=== PATIENT | female | born 1990 | race American Indian/Alaskan Native ===

== ENCOUNTER 2019-04-26 15:06 | Emergency (ER) | payer SELFPAY ==
--- NOTE | 2019-04-26 15:17 | Emergency Department Report ---
Blank Doc - Documentation Documentation: This is a 28-year-old female that presents with SI. Stated has a plan to hang self and cut wrist. This initial assessment/diagnostic orders/clinical plan/treatment(s) is/are subject to change based on patient's health status, clinical progression and re- assessment by fellow clinical providers in the ED. Further treatment and workup at subsequent clinical providers discretion. Patient/guardians urged not to elope from the ED as their condition may be serious if not clinically assessed and managed. Initial orders include: 1- Patient sent to MAIN ED for further evaluation and treatment 2- cross tie tram loader was notified to have patient be brought back [facility]. 3- RN was notified to keep patient as close range and observation until room available 4- Patient presents with substantial risk of imminent harm to self, appears to be so unable to care for his/her own physical health and safety as to create an imminently life-endangering crisis, and has committed/expressed life endangering crisis to self. Due to this and other complaints, patient is put on 1013.
[2019-04-26 15:43] LABS: Basophils % (Auto) 0.6 % (0.0-1.8); Eosinophils # (Auto) 0.1 K/mm3 (0.0-0.4); Eosinophils % (Auto) 1.2 % (0.0-4.3); Hematocrit 39.7 % (30.3-42.9); Lymphocytes % (Auto) 34.2 % (13.4-35.0); Mean Corpuscular HGB Conc 33 % (30-34); Mean Corpuscular Hemoglobin 30 pg (28-32); Mean Corpuscular Volume 93 fl (79-97); Monocytes # (Auto) 0.5 K/mm3 (0.0-0.8); Monocytes % (Auto) 9.3 % (0.0-7.3); Platelet Count 236 K/mm3 (140-440); Red Blood Count 4.28 M/mm3 (3.65-5.03); Red Cell Distribution Width 14.6 % (13.2-15.2)
[2019-04-26 16:14] LABS: BUN/Creatinine Ratio 3; Blood Urea Nitrogen 3 mg/dL (7-17); Calcium 9.1 mg/dL (8.4-10.2); Hemolysis Index 8
[2019-04-26 16:23] LABS: Bacteria,Urine 2+ /HPF (Negative); Bilirubin,Urine NEG (Negative); Blood,Urine SM (Negative); Color,Urine Yellow (Yellow); Mucus,Urine FEW /HPF; Protein,Urine <15 mg/dL mg/dL (Negative); Urobilinogen,Urine < 2.0 mg/dL (<2.0)
[2019-04-26 16:29] LABS: WBC,Urine > 182.0 /HPF (0.0-6.0)
[2019-04-26 16:45] LABS: Amphetamine Screen,Urine PRESUMPTIVE NEGATIVE; Benzodiazepines Screen,Urine PRESUMPTIVE NEGATIVE; Methadone Screen,Urine PRESUMPTIVE NEGATIVE; Opiate Screen,Urine PRESUMPTIVE NEGATIVE
[2019-04-26 17:18] LABS: Cannabinoid Screen,Urine PRESUMPTIVE POSITIVE; Cocaine Screen,Urine PRESUMPTIVE POSITIVE
[2019-04-26] MEDS ORDERED: MACROBID PO ONE (23:03)
--- NOTE | 2019-04-27 01:08 | Emergency Department Report ---
ED Psych HPI - General Chief Complaint: Psych Stated Complaint: MH EVAL Time Seen by Provider: 04/26/19 15:15 Source: patient Mode of arrival: Ambulatory - History of Present Illness Initial Comments: Patient is a 28-year-old Haitian female who is presenting with depression and suicidal thoughts. Patient states that she is felt this way for some time. Patient denies any homicidal ideations. Patient states she also has some auditory hallucinations but will not state what her voices are saying to her. Patient has not attempted suicide at this time. Patient states she does have a history of self medicated with cocaine and alcohol. - Related Data Home Medications Medication Instructions Recorded Confirmed Last Taken Divalproex ER [Depakote ER] 2 tab PO DAILY 04/26/19 04/26/19 Unknown OLANZapine [Zyprexa] 1 tab PO HS 04/26/19 04/26/19 Unknown QUEtiapine [SEROquel] 200 mg PO BID 04/26/19 04/26/19 Unknown Allergies Allergy/AdvReac Type Severity Reaction Status Date / Time Penicillins Allergy Hives Verified 08/19/17 13:28 ED Review of Systems ROS: Stated complaint: MH EVAL Other details as noted in HPI Comment: All other systems reviewed and negative ED Past Medical Hx - Past Medical History Previous Medical History?: Yes Hx Psychiatric Treatment: Yes (Schizophrenia, Bi Polar, depression, anxiety, PTSD) - Surgical History Past Surgical History?: Yes Additional Surgical History: Hernia repair age 12 - Social History Smoking Status: Unknown if ever smoked Substance Use Type: None - Medications Home Medications: Home Medications Medication Instructions Recorded Confirmed Last Taken Type Divalproex ER [Depakote ER] 2 tab PO DAILY 04/26/19 04/26/19 Unknown History OLANZapine [Zyprexa] 1 tab PO HS 04/26/19 04/26/19 Unknown History QUEtiapine [SEROquel] 200 mg PO BID 04/26/19 04/26/19 Unknown History ED Physical Exam - General Limitations: No Limitations General appearance: alert, in no apparent distress - Head Head exam: Present: atraumatic, normocephalic - Eye Eye exam: Present: normal appearance - ENT ENT exam: Present: mucous membranes moist - Neck Neck exam: Present: normal inspection - Respiratory Respiratory exam: Present: normal lung sounds bilaterally. Absent: respiratory distress, wheezes, rales, rhonchi - Cardiovascular Cardiovascular Exam: Present: regular rate, normal rhythm. Absent: systolic murmur, diastolic murmur, rubs, gallop - GI/Abdominal GI/Abdominal exam: Present: soft, normal bowel sounds. Absent: distended, tenderness, guarding, rebound - Extremities Exam Extremities exam: Present: normal inspection - Back Exam Back exam: Present: normal inspection - Neurological Exam Neurological exam: Present: alert, oriented X3 - Psychiatric Psychiatric exam: Present: normal affect, normal mood - Skin Skin exam: Present: warm, dry, intact, normal color. Absent: rash ED Course Vital Signs 04/26/19 04/26/19 15:18 19:27 Temperature 98.5 F 97.7 F Pulse Rate 73 71 Respiratory 18 16 Rate Blood Pressure 134/80 Blood Pressure 102/64 [Left] O2 Sat by Pulse 99 99 Oximetry ED Medical Decision Making - Lab Data Result diagrams: 04/26/19 15:31 04/26/19 15:31 Lab Results 04/26/19 04/26/19 04/26/19 Range/Units 15:17 15:31 15:31 WBC 5.8 (4.5-11.0) K/mm3 RBC 4.28 (3.65-5.03) M/mm3 Hgb 13.0 (10.1-14.3) gm/dl Hct 39.7 (30.3-42.9) % MCV 93 (79-97) fl MCH 30 (28-32) pg MCHC 33 (30-34) % RDW 14.6 (13.2-15.2) % Plt Count 236 (140-440) K/mm3 Lymph % (Auto) 34.2 (13.4-35.0) % [place] % (Auto) 9.3 H (0.0-7.3) % Eos % (Auto) 1.2 (0.0-4.3) % Baso % (Auto) 0.6 (0.0-1.8) % Lymph # 2.0 (1.2-5.4) K/mm3 [place] # 0.5 (0.0-0.8) K/mm3 Eos # 0.1 (0.0-0.4) K/mm3 Baso # 0.0 (0.0-0.1) K/mm3 Seg Neutrophils % 54.7 (40.0-70.0) % Seg Neutrophils # 3.2 (1.8-7.7) K/mm3 Sodium 141 (137-145) mmol/L Potassium 3.4 L (3.6-5.0) mmol/L Chloride 103.5 (98-107) mmol/L Carbon Dioxide 27 (22-30) mmol/L Anion Gap 14 mmol/L BUN 3 L (7-17) mg/dL Creatinine 1.1 (0.7-1.2) mg/dL Estimated GFR > 60 ml/min BUN/Creatinine Ratio 3 % Glucose 62 L (65-100) mg/dL Calcium 9.1 (8.4-10.2) mg/dL HCG, Qual (Negative) Urine Color (Yellow) Urine Turbidity (Clear) Urine pH (5.0-7.0) Ur Specific [place] (1.003-1.030) Urine Protein (Negative) mg/dL Urine Glucose (UA) (Negative) mg/dL Urine Ketones (Negative) mg/dL Urine Blood (Negative) Urine Nitrite (Negative) Urine Bilirubin (Negative) Urine Urobilinogen (<2.0) mg/dL Ur Leukocyte Esterase (Negative) Urine WBC (Auto) (0.0-6.0) /HPF Urine RBC (Auto) (0.0-6.0) /HPF U Epithel Cells (Auto) (0-13.0) /HPF Urine Bacteria (Auto) (Negative) /HPF Urine WBC Clumps /HPF Ur Transition Epith Cell /HPF Urine Mucus /HPF Salicylates (2.8-20.0) mg/dL Urine Opiates Screen Presumptive negative Urine Methadone Screen Presumptive negative Acetaminophen (10.0-30.0) ug/mL Ur Barbiturates Screen Presumptive negative Ur Phencyclidine Scrn Presumptive negative Ur Amphetamines Screen Presumptive negative U Benzodiazepines Scrn Presumptive negative Urine Cocaine Screen Presumptive positive U Marijuana (THC) Screen Presumptive positive Drugs of Abuse Note Disclamer Plasma/Serum Alcohol (0-0.07) % 04/26/19 04/26/19 04/26/19 Range/Units 15:31 15:31 15:31 WBC (4.5-11.0) K/mm3 RBC (3.65-5.03) M/mm3 Hgb (10.1-14.3) gm/dl Hct (30.3-42.9) % MCV (79-97) fl MCH (28-32) pg MCHC (30-34) % RDW (13.2-15.2) % Plt Count (140-440) K/mm3 Lymph % (Auto) (13.4-35.0) % [place] % (Auto) (0.0-7.3) % Eos % (Auto) (0.0-4.3) % Baso % (Auto) (0.0-1.8) % Lymph # (1.2-5.4) K/mm3 [place] # (0.0-0.8) K/mm3 Eos # (0.0-0.4) K/mm3 Baso # (0.0-0.1) K/mm3 Seg Neutrophils % (40.0-70.0) % Seg Neutrophils # (1.8-7.7) K/mm3 Sodium (137-145) mmol/L Potassium (3.6-5.0) mmol/L Chloride (98-107) mmol/L Carbon Dioxide (22-30) mmol/L Anion Gap mmol/L BUN (7-17) mg/dL Creatinine (0.7-1.2) mg/dL Estimated GFR ml/min BUN/Creatinine Ratio % Glucose (65-100) mg/dL Calcium (8.4-10.2) mg/dL HCG, Qual (Negative) Urine Color (Yellow) Urine Turbidity (Clear) Urine pH (5.0-7.0) Ur Specific [place] (1.003-1.030) Urine Protein (Negative) mg/dL Urine Glucose (UA) (Negative) mg/dL Urine Ketones (Negative) mg/dL Urine Blood (Negative) Urine Nitrite (Negative) Urine Bilirubin (Negative) Urine Urobilinogen (<2.0) mg/dL Ur Leukocyte Esterase (Negative) Urine WBC (Auto) (0.0-6.0) /HPF Urine RBC (Auto) (0.0-6.0) /HPF U Epithel Cells (Auto) (0-13.0) /HPF Urine Bacteria (Auto) (Negative) /HPF Urine WBC Clumps /HPF Ur Transition Epith Cell /HPF Urine Mucus /HPF Salicylates < 0.3 L (2.8-20.0) mg/dL Urine Opiates Screen Urine Methadone Screen Acetaminophen < 5.0 L (10.0-30.0) ug/mL Ur Barbiturates Screen Ur Phencyclidine Scrn Ur Amphetamines Screen U Benzodiazepines Scrn Urine Cocaine Screen U Marijuana (THC) Screen Drugs of Abuse Note Plasma/Serum Alcohol < 0.01 (0-0.07) % 04/26/19 04/26/19 Range/Units 15:31 15:54 WBC (4.5-11.0) K/mm3 RBC (3.65-5.03) M/mm3 Hgb (10.1-14.3) gm/dl Hct (30.3-42.9) % MCV (79-97) fl MCH (28-32) pg MCHC (30-34) % RDW (13.2-15.2) % Plt Count (140-440) K/mm3 Lymph % (Auto) (13.4-35.0) % [place] % (Auto) (0.0-7.3) % Eos % (Auto) (0.0-4.3) % Baso % (Auto) (0.0-1.8) % Lymph # (1.2-5.4) K/mm3 [place] # (0.0-0.8) K/mm3 Eos # (0.0-0.4) K/mm3 Baso # (0.0-0.1) K/mm3 Seg Neutrophils % (40.0-70.0) % Seg Neutrophils # (1.8-7.7) K/mm3 Sodium (137-145) mmol/L Potassium (3.6-5.0) mmol/L Chloride (98-107) mmol/L Carbon Dioxide (22-30) mmol/L Anion Gap mmol/L BUN (7-17) mg/dL Creatinine (0.7-1.2) mg/dL Estimated GFR ml/min BUN/Creatinine Ratio % Glucose (65-100) mg/dL Calcium (8.4-10.2) mg/dL HCG, Qual Negative (Negative) Urine Color Yellow (Yellow) Urine Turbidity Cloudy (Clear) Urine pH 6.0 (5.0-7.0) Ur Specific [place] 1.009 (1.003-1.030) Urine Protein <15 mg/dl (Negative) mg/dL Urine Glucose (UA) Neg (Negative) mg/dL Urine Ketones Neg (Negative) mg/dL Urine Blood Sm (Negative) Urine Nitrite Neg (Negative) Urine Bilirubin Neg (Negative) Urine Urobilinogen < 2.0 (<2.0) mg/dL Ur Leukocyte Esterase Lg (Negative) Urine WBC (Auto) > 182.0 H (0.0-6.0) /HPF Urine RBC (Auto) 22.0 (0.0-6.0) /HPF U Epithel Cells (Auto) 3.0 (0-13.0) /HPF Urine Bacteria (Auto) 2+ (Negative) /HPF Urine WBC Clumps 3+ /HPF Ur Transition Epith Cell < 1 /HPF Urine Mucus Few /HPF Salicylates (2.8-20.0) mg/dL Urine Opiates Screen Urine Methadone Screen Acetaminophen (10.0-30.0) ug/mL Ur Barbiturates Screen Ur Phencyclidine Scrn Ur Amphetamines Screen U Benzodiazepines Scrn Urine Cocaine Screen U Marijuana (THC) Screen Drugs of Abuse Note Plasma/Serum Alcohol (0-0.07) % - Medical Decision Making Placed on 1013 and is awaiting psychiatric placement. Patient also has a UTI was started on Macrobid. Critical care attestation.: If time is entered above; I have spent that time in minutes in the direct care of this critically ill patient, excluding procedure time. ED Disposition Clinical Impression: Encounter for psychiatric assessment Disposition: DC/TX-65 PSY HOSP/PSY UNIT Is pt being admited?: No Does the pt Need Aspirin: No Condition: Stable Referrals: ANJU ACOSTA MD [Primary Care Provider] - 3-5 Days Time of Disposition: 01:08
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
[2019-04-27] MEDS: ZOLOFT PO SCH (14:25)
[2019-04-28] MEDS: ZOLOFT PO SCH (10:00)
--- NOTE | 2019-04-28 13:46 | Progress Note ---
Subjective - Reason for Consult Consult date: 04/28/19 Reason for consult: Psychiatric Follow-up Evaluation - Chief Complaint Chief complaint: "Same ol same ol" Patient is a 28 y.o. AA female who presented to the ER for depression and suicidal ideations. Today the patient is cooperative but anxious during the assessment. At times throughout the assessment patient is tearful. She states, " I still feel like I want to hurt myself. I want to slice my wrist." Patient presents depressed and anxious during the assessment. She endorses multiple stressors. She rates her depression 20/10 on scale from 1 to 10, with 10 being the worse. Later, she states " I hear voices telling me I'm worthless and need to end my life." She reports decrease appetite and appropriate sleep. She reports medication compliance. Reported side effects are nausea and decrease a ppetite. Mental Status Exam - Vital signs Last Vital Signs Temp 99.1 F 04/28/19 10:00 Pulse 53 L 04/28/19 10:00 Resp 18 04/28/19 10:00 BP 115/64 04/28/19 10:00 Pulse Ox 99 04/28/19 10:00 - Exam Narrative exam: Mental Status Exam: Appearance: anxious, cooperative Behavior: regular eye contact Speech: regular rate and tone Mood: depressed, anxious, tearful Affect: congruent to mood Thought Process: circumstantial Thought Content: denies HI's and AVH's; +SI's with plan to cut wrist Motor Activity: ambulatory Cognition: A/O x 3 Insight: variable to fair Judgment: poor Assessment and Plan Impression: MDD. PTSD. Substance Use DO (cocaine). Cannabis Use DO. Hx of self injury. Today patient is cooperative but anxious during the assessment. She endorses depressed mood, anxiety, auditory hallucinations, and SI's with plan. DDx: Substance Induced Mood DO, R/O Personality DO Recommendation/Plan: 1. Continue 1013. 2. Discontinue Zoloft 50 mg PO daily for depression/PTSD. Discussed possible suicidality/medication induced fransisca with tatient reference Zoloft, she verbalized understanding. Ordered line of sight for safety, assigned nurse informed. Patient complained of side effects nausea and decrease appetite. 3. Start Abilify 5mg po QHS mood/psychosis. Discussed possible metabolic side effects. Patient verbalizes understanding. Disposition: The patient was referred to inpatient psychiatric services. Will staff with Dr Burt Thomas.
[2019-04-28] MEDS ORDERED: ABILIFY PO SCH (22:00)
[2019-04-29 05:21] LABS: Bilirubin,Urine NEG (Negative); Blood,Urine NEG (Negative); Color,Urine Yellow (Yellow); Protein,Urine <15 mg/dL mg/dL (Negative); Urobilinogen,Urine < 2.0 mg/dL (<2.0)
[2019-04-29] MEDS ORDERED: PHENERGAN PO ONE (10:03)
[2019-04-29] MEDS ORDERED: ZOLOFT PO ONE (13:26)
--- NOTE | 2019-04-29 13:29 | Progress Note ---
Subjective - Reason for Consult Consult date: 04/29/19 Reason for consult: Psychiatry Follow-up - Chief Complaint Chief complaint: "Its hard for me" Patient is a 28 y.o. AA female who presented to the ER for depression and suicidal ideations. Today the patient was calm and cooperative during the assessment. She stated that nothing had changed, she stated, "I have nothing to live for at this time." She denies HI's and AVH's. She denies any side effects of her medication. Mental Status Exam - Vital signs Last Vital Signs Temp 98.9 F 04/29/19 11:02 Pulse 72 04/29/19 11:02 Resp 18 04/29/19 11:02 BP 127/85 04/29/19 11:02 Pulse Ox 98 04/29/19 11:02 - Exam Narrative exam: MSE: Appearance: calm, cooperative Behavior: regular eye contact Speech: regular rate and tone Mood: 'okay" Affect: congruent to mood Thought Process: circumstantial Thought Content: denies HI's and AVH's Motor Activity: ambulatory Cognition: A/O x 3 Insight: variable Judgment: variable Assessment and Plan Impression: MDD. PTSD. Substance Use DO (cocaine). Cannabis Use DO. Hx of self injury. Today patient was calm and cooperative during the assessment. DDx Substance Induced Mood DO, R/O Personality DO Recommendation/Plan: Continue 1013, Zoloft 50 mg PO daily for depression/PTSD, and Abilify 5 mg PO HS for mood. Discussed possible suicidality/medication induced fransisca with patient reference Zoloft, she verbalized understanding. Discussed possible metabolic side effects of Abilify with patient, she verbalized understanding. Ordered line of sight for safety, assigned nurse informed. Dispo: The patient was accepted at [facility] for inpatient psy services pending transport time. Will staff with Dr Burt Thomas.
[2019-04-29 14:36] VITALS: BP 115/69
== END 2019-04-29 19:11 ==
LOC: EEVIPCON 15:06 → ED 15:06
DX: F43.11 Post-traumatic stress disorder, acute (principal); F32.9 Major depressive disorder, single episode, unspecified; Z88.0 Allergy status to penicillin; F14.10 Cocaine abuse, uncomplicated; X58.XXXA Exposure to other specified factors, initial encounter; Y93.89 Activity, other specified; Y92.89 Other specified places as the place of occurrence of the external cause; Y99.8 Other external cause status
CPT/HCPCS: 36415; 80048; 80307; 81001; 84703; 85025; 99285; Q0169; 80320; G0480